=== PATIENT | female | born 1960 | race Caucasian/White ===

== ENCOUNTER → 2017-03-23 | Outpatient (CLI) | payer OTHER | LOC: FIMAGING 08:00 | PROVIDERS: ATTEND Internal Medicine | DX: Z12.31 Encounter for screening mammogram for malignant neoplasm of breast (principal); Z80.3 Family history of malignant neoplasm of breast | CPT/HCPCS: G0202 ==

== ENCOUNTER 2017-06-24 16:29 | Emergency (ER) | payer OTHER ==
--- NOTE | 2017-06-24 16:37 | EDPHY ---
H & P HPI/ROS: CHIEF COMPLAINT: Left back pain HISTORY OF PRESENT ILLNESS: The patient is a 57 y/o female arriving via EMS who complains of left-sided mid back pain that started around 14:20, 3 hours ago. Earlier today she felt a heaviness in her bladder, so she went to bathroom but did not have any burning or blood. Twenty to thirty minutes later she was still feeling poorly and began to have left-sided back pain. The pain decreased for a short time but has been increasing since. She had a normal bowel movement this morning, but tried stool softener and cranberry juice for her symptoms. Denies radiating pain, fever, vomiting, diarrhea, cough, recent illness, history of kidney stone. No recent trauma. REVIEW OF SYSTEMS: A ten point review of systems was performed and is negative with the exception of the items mentioned in the HPI. Past medical history: Denies Past surgical history: Arthroscopic surgery on shoulder Family history: Father and brother have kidney stones Social history: Lives in [place] Works for [employer] PCP: Joselin Garcia General Appearance: Alert. Vital signs reviewed. BP 133/87. Eyes: Pupils equal and round, no conjunctival injection, no discharge. Anicteric. ENT, Mouth: Mucous membranes are moist, no oropharyngeal erythema or edema. Neck: No lymphadenopathy, supple. Respiratory: Lungs are clear to auscultation; no wheezes, rales, or rhonchi. Cardiovascular: Regular rate and rhythm; no murmur, rub, or gallop. Gastrointestinal: Abdomen is soft and nontender, no masses or organomegaly, bowel sounds normal. Skin: Warm and dry, no rashes on exposed skin, normal color. Back: Nontender to palpation over the thoracolumbar spine. No CVAT. Extremities: No lower extremity edema, no calf tenderness or swelling. Neurological: Alert and oriented. Moving all four extremities easily and equally. Psychiatric: Normal affect. Constitutional: Initial Vital Signs Temperature (C) 36.6 C 06/24/17 16:37 Heart Rate 74 06/24/17 16:37 Respiratory Rate 16 06/24/17 16:37 Blood Pressure 133/87 H 06/24/17 16:37 O2 Sat (%) 93 06/24/17 16:37 O2 Delivery Mode Room Air Allergies/Adverse Reactions: Penicillins Allergy (Verified 06/24/17 16:44) Home Medications: Medication Instructions Recorded Hydrocodone/APAP 5/325 [[place] 1 - 2 tab PO Q4 PRN #20 tab 06/24/17 5/325 (RX)] Tamsulosin HCl [Flomax] 0.4 mg PO DAILY #6 cap 06/24/17 Medical Decision Making - Diagnostics Imaging: Discussed imaging studies w/ liquor inspector Radiologist, I viewed and interpreted images myself ED Course/Re-evaluation: The patient is a 57 y/o female arriving via EMS presenting with left-sided back pain that I am unable to reproduce on palpation. Pain is essentially gone at the time of my evaluation. At 6:15 p.m. I was notified by her nurse that the pain is returning. Urine is positive for blood with a trace of bacteria. I suspect kidney stone. She has been given a dose of Toradol 15 mg IV. I will arrange for CT scan to assess for stone. 1823: Reassessed patient and discussed plan for CT scan. 1854: Spoke with Dr. Herrera, radiologist, who reports bilateral nephrolithiasis and a 2.5mm stone in the left distal ureter with mild hydronephrosis. 1900: Reassessed patient and discussed imaging results. She will be discharged with Flomax and [place]. Return precautions provided; patient is comfortable with this plan. She has not needed pain medicine other than the initial dose of Toradol. Differential Diagnosis: Flank pain including but not limited to musculoskeletal causes, kidney stone, pyelonephritis, shingles, and intra-abdominal causes such as diverticulitis and appendicitis. - Data Points Laboratory Results: Laboratory Results 06/24/17 16:32 06/24/17 16:32 Medications Given: Discontinued Medications Sodium Chloride (Ns) 1,000 mls @ 0 mls/hr IV EDNOW ONE; Wide Open PRN Reason: Protocol Stop: 06/24/17 16:52 Last Admin: 06/24/17 16:54 Dose: 1,000 mls Ketorolac Tromethamine (Toradol) 15 mg IVP EDNOW ONE Stop: 06/24/17 18:14 Last Admin: 06/24/17 18:15 Dose: 15 mg Tamsulosin HCl (Flomax) 0.4 mg PO EDNOW ONE Stop: 06/24/17 18:57 Last Admin: 06/24/17 19:04 Dose: 0.4 mg Departure - Departure Disposition: Home, Routine, Self-Care Clinical Impression: Kidney stone, Kidney stone on left side Condition: Good Instructions: Kidney Stones (ED) Additional Instructions: 1. Take Ibuprofen or Motrin 600 mg by mouth three times a day as needed for pain. 2. Take [place] as needed for severe pain. 3. Take Flomax as directed daily. 4. Strain urine as directed. 5. Return to the Emergency Department for intractable pain, fever or vomiting. 6. Please contact the urologist you have been referred to schedule a follow-up visit. 7. Drink lots and lots of water. Referrals: Luciano Cartwright MD [Medical Doctor] - As per Instructions Prescriptions: Hydrocodone/APAP 5/325 [[place] 5/325 (RX)] 1 - 2 tab PO Q4 PRN #20 tab PRN Reason: pain Tamsulosin HCl [Flomax] 0.4 mg PO DAILY #6 cap Report Scribed for: Lili Kline Report Scribed by: Cece Das Date of Report: 06/24/17 Time of Report: 16:49 Physician Review and Approval Statement: 06/24/17 16:36 Portions of this note were transcribed by the biomedical repair technician. I, Dr. Lili Kline, personally performed the history, physical exam, and medical decision- making; and confirmed the accuracy of the information in the transcribed note.
[2017-06-24 16:40] VITALS: RESP 16; TEMP 97.9
[2017-06-24] MEDS ORDERED: NS 1,000 ML IV ONE (16:51)
[2017-06-24 16:55] LABS: % IMMATURE GRANULYOCYTES 0.3 % (0.0-1.1); ABSOLUTE IMMATURE GRANULOCYTES 0.03 10^3/uL (0.00-0.10); ADD DIFF? NO; ADD MORPH? NO; ADD SCAN? NO; ATYPICAL LYMPHOCYTE FLAG 10 (0-99); FRAGMENT RBC FLAG 0 (0-99); HEMATOCRIT 44.2 % (38.0-47.0); HEMOGLOBIN 15.1 g/dL (12.6-16.3); LEFT SHIFT FLG 0 (0-99); LIPEMIA HEMOLYSIS FLAG 90 (0-99); MEAN CELL HEMOGLOBIN 33.2 pg (27.9-34.1); MEAN CELL HEMOGLOBIN CONCENTR. 34.2 g/dL (32.4-36.7); MEAN CELL VOLUME 97.1 fL (81.5-99.8); MEAN PLATELET VOLUME 11.5 fL (8.7-11.7); PLATELET CLUMPS FLAG 10 (0-99); PLATELET COUNT 249 10^3/uL (150-400); RED BLOOD CELL COUNT 4.55 10^6/uL (4.18-5.33)
[2017-06-24 17:04] LABS: ANION GAP 12 mEq/L (8-16); CALCIUM 10.3 mg/dL (8.5-10.4); CARBON DIOXIDE 26 mEq/l (22-31); CHLORIDE 100 mEq/L (97-110); CREATININE 0.9 mg/dL (0.6-1.0); GLOMERULAR FILTRATION RATE > 60; GLUCOSE 121 mg/dL (70-100); POTASSIUM 4.3 mEq/L (3.5-5.2); SODIUM 138 mEq/L (134-144)
[2017-06-24 18:05] LABS: COLOR YELLOW; LEUKOCYTE ESTERASE,URINE NEGATIVE (NEGATIVE); NITRITE,URINE NEGATIVE (NEGATIVE)
[2017-06-24 18:08] LABS: BACTERIA TRACE /hpf (NONE SEEN); MUCUS TRACE /lpf (NONE-1+); RBC,URINE 50-182 /hpf (0-3)
[2017-06-24] MEDS ORDERED: KETOROLAC 15 MG/1 ML SDV IVP ONE (18:13)
[2017-06-24 18:18] VITALS: BP 115/65; PULSE 71; O2SAT 97
[2017-06-24] MEDS ORDERED: TAMSULOSIN HCL 0.4 MG CAP PO ONE (18:56)
== END 2017-06-24 19:15 | disposition home or self-care (01) ==
LOC: EDUNIT#
DX: N20.0 Calculus of kidney (principal); E86.9 Volume depletion, unspecified
CPT/HCPCS: 96374; J1885

== ENCOUNTER → 2018-04-04 | Outpatient (CLI) | payer OTHER | LOC: FIMAGING 09:46 | PROVIDERS: ATTEND Internal Medicine | DX: Z12.31 Encounter for screening mammogram for malignant neoplasm of breast (principal) ==